=== PATIENT | female | born 1980 | race African-American/Black ===

== ENCOUNTER 2019-08-08 16:05 | Emergency (ER) | payer OTHER ==
[~2019-08-08] VITALS: Ht 157.5 cm; Wt 80.7 kg
[2019-08-08] MEDS ORDERED: Prochlorperazine 10mg tab ORAL PRN (17:15)
[2019-08-08] MEDS ORDERED: Ketorolac 30mg Inj IM ONE (17:15)
[2019-08-08 17:30] VITALS: BP 142/92
[2019-08-08 17:36] LABS: APPEARANCE,URINE CLEAR; BILIRUBIN, URINE NEGATIVE (NEGATIVE); COLOR,URINE PALE YELLOW; GLUCOSE, URINE (UA) NEGATIVE (NEGATIVE); KETONES,URINE NEGATIVE (NEGATIVE); LEUKOCYTE ESTERASE ,URINE 1+ (NEGATIVE); NITRITE,URINE NEGATIVE (NEGATIVE); PH,URINE 6 (4.5-8.0); PROTEIN,URINE NEGATIVE (NEGATIVE); UROBILINOGEN,URINE 1 MG/DL (0.0-1.0)
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
[2019-08-08] MEDS ORDERED: FIORINAL 50-321 EACH PO (18:01)
[2019-08-08 18:05] VITALS: BP 142/92
--- NOTE | 2019-08-08 18:05 | NUR ---
ER DISCHARGE NOTE: Patient is cleared to be discharged per ERMD, pt is aox4, on room air, with stable vital signs. pt was given dc and prescription instructions, pt was able to verbalize understanding, pt is able to ambulate with steady gait. pt took all belongings.
== END 2019-08-08 18:05 | disposition home or self-care (01) ==
LOC: EMR 18:05
DX: R51 Headache (principal)
CPT/HCPCS: 81003; 81025; 96372; J1885; Z7502; 99283